=== PATIENT | male | born 1960 | race Asian ===

== ENCOUNTER 2025-04-03 10:25 | Outpatient (CLI) | payer MEDICAID ==
[~2025-04-03 10:25] MED LIST: ASPI-1264 PO; ATOR40TA PO; GLIM4TAB7 PO; IBUP-1986 PO; IBUP-24 PO; LISI20TA28 PO; METH-603 PO
--- NOTE | 2025-04-03 12:55 | RADIOLOGY REPORT ---
Exam: CT CT ABDOMEN History: MESENTERIC LYMPHADENITIS Comparison Study: None TECHNIQUE: Serial axial images were performed through the abdomen then reformatted in sagittal and co scott planes RADIATION DOSE: DLP 1148 mGy.cm; CTDI vol 36 mGy. Findings: Lungs: The lung bases are clear. Heart: No cardiomegaly or pericardial effusion. Liver: Unremarkable. Gallbladder: Absent. No biliary dilatation. Spleen: Unremarkable Pancreas: Unremarkable Adrenals: Unremarkable Kidneys: Mildly atrophic without mass stone or hydronephrosis. GI tract: Unremarkable : Unremarkable. Vasculature: Unremarkable Lymphadenopathy: Absent Peritoneum: No ascites Musculoskeletal: Unremarkable Soft tissues: Unremarkable Impression: 1. No evidence of enlarged mesenteric lymph nodes. 2. No acute pathology in the abdomen.
== END 2025-04-03 23:59 | disposition home or self-care (01) ==
LOC: RAD 10:25
PROVIDERS: ATTEND Physician Assistant Medical
DX: N26.1 Atrophy of kidney (terminal) (principal); I88.0 Nonspecific mesenteric lymphadenitis
CPT/HCPCS: 74150